=== PATIENT | female | born 1955 | race Caucasian/White ===

== ENCOUNTER 2024-06-16 06:07 | Inpatient (IN) | payer MEDICARE, OTHER ==
[~2024-06-16] VITALS: Ht 165.1 cm; Wt 76.8 kg
[2024-06-16] MEDS: ondansetron/PF 4mg/2ml inj IV ONE (06:46)
[2024-06-16 07:10] LABS: BASOPHILS # (AUTO) 0.1 X10'3 (0-0.2); BASOPHILS % (AUTO) 0.3 % (0-1); EOSINOPHILS # (AUTO) 0.1 X10'3 (0-0.9); EOSINOPHILS % (AUTO) 0.5 % (0-6); HEMATOCRIT 32.5 % (35.0-45.0); LYMPHOCYTES # (AUTO) 1.1 X10'3 (1.1-4.8); MEAN CORPUSCULAR HEMOGLOBIN 31.2 PG (27.0-31.0); MEAN CORPUSCULAR HGB CONC 33.8 g/dL (33.0-36.5); MEAN CORPUSCULAR VOLUME 92.2 FL (78-98); MEAN PLATELET VOLUME 8.3 FL (7.4-10.4); MONOCYTES # (AUTO) 1.2 X10'3 (0-0.9); MONOCYTES % (AUTO) 5.4 % (2-12); NEUTROPHILS # (AUTO) 19.8 X10'3 (1.8-7.7); NEUTROPHILS % (AUTO) 88.8 % (42-75); PLATELET COUNT 327 X10'3 (140-440); RED BLOOD COUNT 3.53 X10'6 (4.20-5.60); RED CELL DISTRIBUTION WIDTH 14.7 % (11.5-14.5); WHITE BLOOD COUNT 22.3 X10'3 (4.5-11.0)
[2024-06-16 07:20] LABS: ALANINE AMINOTRANSFERASE 19 U/L (12-78); ALBUMIN 1.9 G/DL (3.4-5.0); ALBUMIN/GLOBULIN RATIO 0.4 (1.1-1.5); ALKALINE PHOSPHATASE 133 IU/L (46-116); ANION GAP 8 (8-16); ASPARTATE AMINO TRANSFERASE 21 U/L (10-37); BILIRUBIN,TOTAL 0.5 MG/DL (0.1-1.0); BLOOD UREA NITROGEN 11 MG/DL (7-18); BUN/CREATININE RATIO 6.2 (10.0-20.0); CALCIUM 9.2 MG/DL (8.5-10.1); CHLORIDE 99 MMOL/L (99-107); CREATININE 1.78 MG/DL (0.40-0.90); GLUCOSE 145 MG/DL (70-104); LIPASE 32 U/L (16-77); SODIUM 137 MMOL/L (135-145); TOTAL CARBON DIOXIDE 29.9 MMOL/L (24-32); TOTAL PROTEIN 6.4 G/DL (6.4-8.2); eCRCL 27 ML/MIN; eGFR 28 ML/MIN
[2024-06-16 07:29] LABS: POTASSIUM 2.2 MMOL/L (3.5-5.1)
[2024-06-16] MEDS: potassium Cl 20 mEq SR tablet PO STA (07:48)
[2024-06-16] MEDS: magnesium oxide 400mg tablet PO ONE (07:50)
[2024-06-16 08:58] LABS: MAGNESIUM 1.7 MG/DL (1.5-2.4)
[2024-06-16 10:27] LABS: BILIRUBIN,URINE NEGATIVE (Neg); CLARITY,URINE CLEAR (Clear); COLOR,URINE YELLOW (Yellow); GLUCOSE, URINE NEGATIVE (Neg); KETONES,URINE NEGATIVE (Neg); LEUKOCYTE ESTERASE ,URINE NEGATIVE (Neg); NITRITES, URINE NEGATIVE (Neg); OCCULT BLOOD,URINE SMALL (Neg); PROTEIN,URINE 30 mg/dl (Neg); UROBILINOGEN,URINE 0.2 E.U/dL (0.2-1.0)
[2024-06-16 10:33] LABS: UA COLLECTION TYPE OTHER
[2024-06-16 10:36] LABS: BACTERIA,URINE FEW /HPF (Neg); MUCUS STRANDS FEW /LPF (Neg); SQUAMOUS EPITHELIAL CELL,UR FEW /LPF (FEW)
[2024-06-16] MEDS: ciprofloxacin 250mg tablet PO ONE (12:15)
[2024-06-16] MEDS ORDERED: potassium Cl 40MEQ/1/2NS 520ml 520 ML IV PRN (14:35)
[2024-06-16] MEDS ORDERED: acetaminophen 325mg tablet PO PRN (14:35)
[2024-06-16] MEDS ORDERED: magnesium Cl slow-release 64mg tablet PO PRN (14:35)
[2024-06-16] MEDS ORDERED: magnesium sulf-water 4G/100mL 100 ML IV PRN (14:35)
[2024-06-16] MEDS ORDERED: magnesium sulf-water 2g/50mL 50 ML IV PRN (14:35)
[2024-06-16] MEDS ORDERED: magnesium hydroxide 30ml (MOM) UD suspension PO PRN (14:35)
[2024-06-16 14:54] VITALS: BP 134/87; PULSE 95; RESP 18; TEMP 97.5; O2SAT 98
[2024-06-16] MEDS: metroNIDAZOLE-Flagyl 500mg/NS 100 ML IV SCH (15:16)
[2024-06-16] MEDS: normal saline 1000ml 1,000 ML IV SCH (15:16)
[2024-06-16] MEDS: ondansetron/PF 4mg/2ml inj IV PRN (15:16)
[2024-06-16 15:22] LABS: C DIFF ANTIGEN POSITIVE (NEGATIVE); C DIFF SPECIMEN=DIARRHEA? ACCEPTABLE; C DIFFICILE TOXINS A&B POSITIVE (Neg)
[2024-06-16 15:30] VITALS: RESP 18; O2SAT 95
[2024-06-16 15:47] LABS: APTT 27 SECONDS (22-32); INR 1.1 INR; MAGNESIUM 1.8 MG/DL (1.5-2.4); PROTHROMBIN TIME 11.5 SECONDS (9.0-12.0)
[2024-06-16 15:50] LABS: POTASSIUM 2.7 MMOL/L (3.5-5.1)
[2024-06-16] MEDS: potassium Cl 20 mEq SR tablet PO PRN (16:37)
[2024-06-16] MEDS: mag hydrox/Alum hydrox/simeth 30ml oral suspension PO PRN (16:51)
[2024-06-16] MEDS ORDERED: METO-384 PO (17:01)
[2024-06-16] MEDS ORDERED: ESCI-8 PO (17:01)
[2024-06-16] MEDS ORDERED: LEVO150C4 PO (17:01)
[2024-06-16] MEDS ORDERED: HYDR12.55 PO (17:01)
[2024-06-16] MEDS ORDERED: ROSU10TA72 PO (17:01)
[2024-06-16 18:00] VITALS: BP 127/65; PULSE 73; RESP 18; TEMP 97.2; O2SAT 99
[2024-06-16] MEDS: docusate sod 100mg capsule PO SCH (19:58)
[2024-06-16 20:00] VITALS: RESP 18; O2SAT 98
[2024-06-16] MEDS ORDERED: ciprofloxacin lact 400MG/200ML 200 ML IV SCH (20:00)
[2024-06-16] MEDS: vancomycin 125 MG/5 ML UD oral SOLN.RECON 5mL oral syringe (FIRVANQ) PO SCH (20:08)
[2024-06-16] MEDS: heparin, porcine 5000 units/ml vial SQ SCH (20:09)
[2024-06-16] MEDS: K and/or MAG REPLACEMENT MC SCH (20:19)
[2024-06-16 22:00] VITALS: BP 113/73; PULSE 98; RESP 13; TEMP 99.3; O2SAT 98
[2024-06-16] MEDS: Melatonin 3mg tablet PO PRN (23:47)
[2024-06-17] VITALS (8 sets, daily range): BP systolic 84–107; BP diastolic 52–66; PULSE 70–95; RESP 14–18; TEMP 98–98.3; O2SAT 96–97
[2024-06-17 06:03] LABS: BASOPHILS # (AUTO) 0.1 X10'3 (0-0.2); BASOPHILS % (AUTO) 0.8 % (0-1); EOSINOPHILS # (AUTO) 0.1 X10'3 (0-0.9); HEMATOCRIT 30.3 % (35.0-45.0); HEMOGLOBIN 9.9 g/dl (12.0-16.0); LYMPHOCYTES # (AUTO) 1.5 X10'3 (1.1-4.8); LYMPHOCYTES % (AUTO) 10.5 % (21-51); MEAN CORPUSCULAR HEMOGLOBIN 29.9 PG (27.0-31.0); MEAN CORPUSCULAR HGB CONC 32.5 g/dL (33.0-36.5); MEAN CORPUSCULAR VOLUME 92.2 FL (78-98); MEAN PLATELET VOLUME 8.4 FL (7.4-10.4); MONOCYTES % (AUTO) 6.7 % (2-12); NEUTROPHILS # (AUTO) 11.6 X10'3 (1.8-7.7); PLATELET COUNT 295 X10'3 (140-440); RED BLOOD COUNT 3.29 X10'6 (4.20-5.60); RED CELL DISTRIBUTION WIDTH 14.8 % (11.5-14.5); WHITE BLOOD COUNT 14.4 X10'3 (4.5-11.0)
[2024-06-17 06:43] LABS: ALANINE AMINOTRANSFERASE 12 U/L (12-78); ALBUMIN 1.7 G/DL (3.4-5.0); ALBUMIN/GLOBULIN RATIO 0.4 (1.1-1.5); ALKALINE PHOSPHATASE 107 IU/L (46-116); ANION GAP 7 (8-16); ASPARTATE AMINO TRANSFERASE 17 U/L (10-37); BILIRUBIN,TOTAL 0.4 MG/DL (0.1-1.0); BLOOD UREA NITROGEN 10 MG/DL (7-18); BUN/CREATININE RATIO 6.5 (10.0-20.0); CALCIUM 8.7 MG/DL (8.5-10.1); CHLORIDE 104 MMOL/L (99-107); CHOL/HDL RATIO 2.1 (0.00-4.99); CHOLESTEROL 86 MG/DL (0-200); CREATININE 1.54 MG/DL (0.40-0.90); GLUCOSE 107 MG/DL (70-104); HDL CHOLESTEROL 41 MG/DL (35-60); LDL CHOLESTEROL 30 MG/DL (50-100); POTASSIUM 3.5 MMOL/L (3.5-5.1); SODIUM 138 MMOL/L (135-145); THYROID STIMULATING HORMONE 6.53 ulU/ml (0.34-4.50); TOTAL CARBON DIOXIDE 26.7 MMOL/L (24-32); TOTAL PROTEIN 5.7 G/DL (6.4-8.2); TRIGLYCERIDES 79 MG/DL (20-135); eCRCL 31 ML/MIN; eGFR 33 ML/MIN
[2024-06-17 07:08] LABS: HEMOGLOBIN A1C 5.9 % (4.5-6.2)
[2024-06-17] MEDS: metoprolol succinate 25mg (24-HOUR) SR. Tablet PO SCH (07:38)
[2024-06-17] MEDS: pantoprazole 40mg Tablet.DR PO SCH (07:38)
[2024-06-17] MEDS: ESCITALOPRAM 10 mg tablet 10 MG TABLET PO SCH (07:38)
[2024-06-17] MEDS: levoTHYROXINE 75mcg tablet PO SCH (07:38)
[2024-06-17] MEDS: ROSUVASTATIN CALCIUM 5 MG TABLET PO SCH (07:39)
[2024-06-17 11:23] LABS: FREE T4 (FREE THYROXINE) 1.08 NG/DL (0.73-1.40)
[2024-06-17] MEDS: lactobacillus rhamnosus 10,000 MMU CELLS/CAPSULE PO SCH (13:20)
[2024-06-18] VITALS (10 sets, daily range): BP systolic 87–110; BP diastolic 51–65; PULSE 63–84; RESP 16–20; TEMP 97.9–98.3; O2SAT 96–100
[2024-06-18 06:03] LABS: BASOPHILS # (AUTO) 0.1 X10'3 (0-0.2); BASOPHILS % (AUTO) 0.7 % (0-1); EOSINOPHILS # (AUTO) 0.5 X10'3 (0-0.9); EOSINOPHILS % (AUTO) 5.2 % (0-6); HEMATOCRIT 26.9 % (35.0-45.0); HEMOGLOBIN 9.2 g/dl (12.0-16.0); LYMPHOCYTES # (AUTO) 1.6 X10'3 (1.1-4.8); LYMPHOCYTES % (AUTO) 16.9 % (21-51); MEAN CORPUSCULAR HEMOGLOBIN 31.4 PG (27.0-31.0); MEAN CORPUSCULAR VOLUME 92.3 FL (78-98); MEAN PLATELET VOLUME 8.8 FL (7.4-10.4); MONOCYTES # (AUTO) 0.6 X10'3 (0-0.9); MONOCYTES % (AUTO) 6.3 % (2-12); NEUTROPHILS # (AUTO) 6.7 X10'3 (1.8-7.7); NEUTROPHILS % (AUTO) 70.9 % (42-75); PLATELET COUNT 279 X10'3 (140-440); RED BLOOD COUNT 2.92 X10'6 (4.20-5.60); RED CELL DISTRIBUTION WIDTH 15.2 % (11.5-14.5); WHITE BLOOD COUNT 9.4 X10'3 (4.5-11.0)
[2024-06-18 06:19] LABS: ALANINE AMINOTRANSFERASE 17 U/L (12-78); ALBUMIN 1.5 G/DL (3.4-5.0); ALBUMIN/GLOBULIN RATIO 0.4 (1.1-1.5); ALKALINE PHOSPHATASE 76 IU/L (46-116); ANION GAP 8 (8-16); ASPARTATE AMINO TRANSFERASE 25 U/L (10-37); BILIRUBIN,TOTAL 0.3 MG/DL (0.1-1.0); BLOOD UREA NITROGEN 11 MG/DL (7-18); BUN/CREATININE RATIO 7.4 (10.0-20.0); CALCIUM 8.4 MG/DL (8.5-10.1); CHLORIDE 108 MMOL/L (99-107); CREATININE 1.48 MG/DL (0.40-0.90); GLUCOSE 107 MG/DL (70-104); SODIUM 142 MMOL/L (135-145); TOTAL PROTEIN 5.4 G/DL (6.4-8.2); eCRCL 32 ML/MIN; eGFR 35 ML/MIN
[2024-06-18 06:30] LABS: POTASSIUM 2.9 MMOL/L (3.5-5.1)
[2024-06-18] MEDS ORDERED: acetaminophen 325mg tablet PO PRN (21:35)
[2024-06-18] MEDS: HYDROcodone/acetaminophen 5mg/325mg tablet PO PRN (21:51)
[2024-06-19] VITALS (8 sets, daily range): BP systolic 105–138; BP diastolic 42–76; PULSE 65–82; RESP 14–20; TEMP 97.7–98.5; O2SAT 94–98
[2024-06-19 04:58] LABS: BASOPHILS # (AUTO) 0.1 X10'3 (0-0.2); BASOPHILS % (AUTO) 1.2 % (0-1); EOSINOPHILS # (AUTO) 0.4 X10'3 (0-0.9); EOSINOPHILS % (AUTO) 6.4 % (0-6); HEMATOCRIT 25.5 % (35.0-45.0); HEMOGLOBIN 8.6 g/dl (12.0-16.0); LYMPHOCYTES # (AUTO) 2.1 X10'3 (1.1-4.8); LYMPHOCYTES % (AUTO) 33.6 % (21-51); MEAN CORPUSCULAR HEMOGLOBIN 31.3 PG (27.0-31.0); MEAN CORPUSCULAR HGB CONC 33.8 g/dL (33.0-36.5); MEAN CORPUSCULAR VOLUME 92.5 FL (78-98); MEAN PLATELET VOLUME 8.2 FL (7.4-10.4); MONOCYTES # (AUTO) 0.4 X10'3 (0-0.9); MONOCYTES % (AUTO) 6.9 % (2-12); NEUTROPHILS # (AUTO) 3.2 X10'3 (1.8-7.7); NEUTROPHILS % (AUTO) 51.9 % (42-75); PLATELET COUNT 276 X10'3 (140-440); RED BLOOD COUNT 2.76 X10'6 (4.20-5.60); RED CELL DISTRIBUTION WIDTH 14.8 % (11.5-14.5); WHITE BLOOD COUNT 6.1 X10'3 (4.5-11.0)
[2024-06-19 05:14] LABS: ALANINE AMINOTRANSFERASE 25 U/L (12-78); ALBUMIN 1.5 G/DL (3.4-5.0); ALBUMIN/GLOBULIN RATIO 0.4 (1.1-1.5); ALKALINE PHOSPHATASE 71 IU/L (46-116); ANION GAP 8 (8-16); ASPARTATE AMINO TRANSFERASE 34 U/L (10-37); BILIRUBIN,TOTAL 0.2 MG/DL (0.1-1.0); BLOOD UREA NITROGEN 7 MG/DL (7-18); BUN/CREATININE RATIO 4.9 (10.0-20.0); CALCIUM 8.9 MG/DL (8.5-10.1); CREATININE 1.43 MG/DL (0.40-0.90); GLUCOSE 96 MG/DL (70-104); POTASSIUM 3.4 MMOL/L (3.5-5.1); SODIUM 144 MMOL/L (135-145); TOTAL PROTEIN 5.2 G/DL (6.4-8.2); eCRCL 33 ML/MIN; eGFR 36 ML/MIN
[2024-06-19 05:20] LABS: CHLORIDE 115 MMOL/L (99-107)
[2024-06-19] MEDS: lactose-reduced food (Ensure Enlive) - 237ml bottle PO SCH (08:00)
[2024-06-19] MEDS: potassium Cl 20 mEq SR tablet PO PRN (09:09)
[2024-06-19 13:09] LABS: TOTAL PROTEIN,URINE RANDOM 51.9 MG/DL
[2024-06-19] MEDS: magnesium oxide 400mg tablet PO SCH (19:55)
[2024-06-19] MEDS: potassium Cl 20 mEq SR tablet PO ONE (19:55)
[2024-06-20 05:39] LABS: BASOPHILS # (AUTO) 0.2 X10'3 (0-0.2); BASOPHILS % (AUTO) 2.6 % (0-1); EOSINOPHILS # (AUTO) 0.2 X10'3 (0-0.9); EOSINOPHILS % (AUTO) 4.2 % (0-6); HEMATOCRIT 25.4 % (35.0-45.0); HEMOGLOBIN 8.7 g/dl (12.0-16.0); LYMPHOCYTES # (AUTO) 1.9 X10'3 (1.1-4.8); MEAN CORPUSCULAR HEMOGLOBIN 31.8 PG (27.0-31.0); MEAN CORPUSCULAR HGB CONC 34.1 g/dL (33.0-36.5); MEAN CORPUSCULAR VOLUME 93.1 FL (78-98); MEAN PLATELET VOLUME 8.2 FL (7.4-10.4); MONOCYTES # (AUTO) 0.6 X10'3 (0-0.9); NEUTROPHILS # (AUTO) 2.9 X10'3 (1.8-7.7); NEUTROPHILS % (AUTO) 50.2 % (42-75); PLATELET COUNT 283 X10'3 (140-440); RED BLOOD COUNT 2.73 X10'6 (4.20-5.60); RED CELL DISTRIBUTION WIDTH 14.8 % (11.5-14.5); WHITE BLOOD COUNT 5.8 X10'3 (4.5-11.0)
[2024-06-20 06:08] LABS: ALANINE AMINOTRANSFERASE 30 U/L (12-78); ALBUMIN 1.7 G/DL (3.4-5.0); ALBUMIN/GLOBULIN RATIO 0.4 (1.1-1.5); ALKALINE PHOSPHATASE 89 IU/L (46-116); ANION GAP 6 (8-16); ASPARTATE AMINO TRANSFERASE 36 U/L (10-37); BILIRUBIN,TOTAL 0.2 MG/DL (0.1-1.0); BLOOD UREA NITROGEN 7 MG/DL (7-18); BUN/CREATININE RATIO 4.6 (10.0-20.0); CALCIUM 8.7 MG/DL (8.5-10.1); CHLORIDE 111 MMOL/L (99-107); CREATININE 1.53 MG/DL (0.40-0.90); GLUCOSE 98 MG/DL (70-104); POTASSIUM 3.6 MMOL/L (3.5-5.1); SODIUM 143 MMOL/L (135-145); TOTAL CARBON DIOXIDE 25.6 MMOL/L (24-32); TOTAL PROTEIN 5.5 G/DL (6.4-8.2); eCRCL 31 ML/MIN; eGFR 34 ML/MIN
[2024-06-20 07:36] LABS: PLATELET ESTIMATE NORMAL; TOTAL CELLS COUNTED 100
[2024-06-20] MEDS ORDERED: FERR324T3 PO (08:24)
[2024-06-20] MEDS ORDERED: VANC25SO PO (08:24)
[2024-06-20] MEDS ORDERED: MAGN400T56 PO (08:24)
[2024-06-20] MEDS ORDERED: LACT1CAP26 PO (08:24)
[2024-06-20] MEDS ORDERED: POTA-197 PO (08:24)
[2024-06-20] MEDS: atorvastatin 20mg tablet PO SCH (08:52)
[2024-06-20] MEDS: ferrous gluconate 324mg tablet PO SCH (08:53)
[2024-06-20] MEDS: potassium Cl 20 mEq SR tablet PO SCH (08:53)
[2024-06-20 10:00] VITALS: BP 102/48; PULSE 73; RESP 19; TEMP 98.1; O2SAT 98
[2024-06-20 10:34] VITALS: RESP 16; O2SAT 97
[2024-06-20 11:30] VITALS: RESP 16
[2024-06-20] MEDS ORDERED: ZINC113C10 TOP (12:59)
[2024-06-20] MEDS ORDERED: VANC125C11 PO (13:45)
[2024-06-20] MEDS ORDERED: LACT1CAP55 PO (15:00)
[2024-06-20] MEDS: FLU VACC TS2024-25(6MOS UP)/PF 45 MCG/0.5 ML SYRINGE IMVAC ONE (15:17)
== END 2024-06-20 15:30 | disposition home or self-care (01) | DRG 371 ==
LOC: ER 06:08 → ED HOLD 12:37 → EDBEDREQ 13:36 → EDBEDREQTM 13:36 → SUR 3N 14:40
PROVIDERS: ADMIT Family Medicine; ATTEND Family Medicine
DX: A04.72 Enterocolitis due to Clostridium difficile, not specified as recurrent (principal); N17.0 Acute kidney failure with tubular necrosis; N39.0 Urinary tract infection, site not specified; N18.4 Chronic kidney disease, stage 4 (severe); E87.6 Hypokalemia; I12.9 Hypertensive chronic kidney disease with stage 1 through stage 4 chronic kidney disease, or unspecified chronic kidney disease; I95.1 Orthostatic hypotension; E78.5 Hyperlipidemia, unspecified; Z79.899 Other long term (current) drug therapy; Z90.710 Acquired absence of both cervix and uterus; Z87.442 Personal history of urinary calculi; Z87.891 Personal history of nicotine dependence; Z23 Encounter for immunization
CPT/HCPCS: 36415; 80053; 80061; 81001; 82570; 82728; 83036; 83540; 83550; 83605; 83690; 83735; 83930; 83935; 84132; 84145; 84156; 84300; 84439; 84443; 85007; 85025; 85610; 85730; 87040; 87045; 87046; 87081; 87088; 87207; 87324; 87449; 89055; 90686; 93005; 96374; 97116; 97161; 97530; 99285; A6250; A6258; A6449; C1758; G0378; J1644; J2405; J3490; J7030

== ENCOUNTER 2024-11-20 11:44 | Emergency (ER) | payer MEDICARE, OTHER ==
[~2024-11-20] VITALS: Ht 170.2 cm; Wt 85.9 kg
[~2024-11-20 11:44] MED LIST: ESCI-8 PO; LEVO150C5 PO; LINE600T14 PO; LISI10TA27 PO; METO-384 PO; VANC25SO PO
--- NOTE | 2024-11-20 12:05 | Physician Documentation ---
History of Present Illness ~ Chief Complaint: Diarrhea Stated Complaint: CDIFF Time Seen by MD: 12:01 Primary Medical Doctor: ERICH MICHAELS This is a 69-year-old male who presents to the emergency department per ambulance today when her home health nurse found her having liquid watery diarrhea and it was concern she may have had a new development of C diff diarrhea. The patient notes going to history of this in the fall after treatment with antibiotics for urinary tract infection. She completed the cour se of appropriate treatment for the C diff. She was not had antibiotics recently. She does note copious diarrhea along with nausea and vomiting and feels weak. Denies any chest pain, shortness of breath, fevers. Medication Reconciliation Allergies: Coded Allergies: No Known Allergies (Unverified , 11/20/24) Scheduled Escitalopram Oxalate (Escitalopram Oxalate), 1 TAB PO DAILY, (Reported) Levothyroxine Sodium (Levothyroxine), 1 CAP PO DAILY, (Reported) Linezolid (Linezolid), 600 MG PO Q12H Lisinopril (Lisinopril), 30 MG PO DAILY Metoprolol Succinate (Metoprolol Succinate), 1 TAB PO DAILY, (Reported) Vancomycin HCl (Firvanq), 125 MG PO Q6H Past Medical History Patient History: FH: alcoholism FATHER FH: thyroid disease MOTHER Alcohol Use: None Drug Use: none Lives with: Alone Lives In: Home Occupation: retired Review of Systems ROS As stated above in the HPI, otherwise all systems are reviewed and negative. Physical Exam Vital Signs: Temperature: 97.9, Source: Oral, Heart Rate: 91, Respiratory Rate: 16, BP: 115/86, Pulse Oximetry: 98, Weight: 85.910 Oxygen Flow Rate: 0 Physical Exam General: Alert, no apparent distress. Neck: Full range of motion. Respiratory: Lungs clear, no respiratory distress. Chest: No accessory muscle use. Cardiovascular: Regular rate and rhythm, no murmurs. Gastrointestinal: Soft, mild diffuse tenderness, nondistended. Bowels sounds present. Extremities: Normal range of motion, no deformity. Neurologic: Oriented x4. Psychiatric: Normal mood and affect. Skin: Normal color, warm and dry. No edema, no ecchymosis. Progress Progress Note Patient ambulated without difficulty in the ER. She did twice provide stool samples, but the first sample was evidently contaminated by urine. Results will be available for PCP to obtain as outpatient. Results/Orders Results/Orders Orders - ADRIAN RIDDLE [employer] C Diff Toxin (11/20/24 12:05) Cult Stool (Enteric Pathogens) (11/20/24 12:05) * Iv Access / Saline Lock * (11/20/24 12:14) Urinalysis, Cult If Indicated (11/20/24 14:50) Completed Orders - ADRIAN RIDDLE [employer] Normal Saline 1000ml (Sodium Chloride 10 (11/20/24 12:15) Ondansetron Inj. (Zofran 4mg/2ml Vial) (11/20/24 12:15) Cbc/Diff (11/20/24 12:17) CMP (11/20/24 12:17) Lipase (11/20/24 12:17) Medications Received in ER Medications (Trade) Dose Ordered Sig/Hernesto Route PRN Reason Start Time Stop Time Status Last Admin Dose Admin Sodium Chloride 1,000 ml @ 1,000 mls/hr ONCE ONCE IV 11/20/24 12:15 11/20/24 13:14 DC 11/20/24 12:42 1,000 MLS/HR (Zofran 4mg/2ml vial) 4 mg ONCE ONCE IV 11/20/24 12:15 11/20/24 12:18 DC 11/20/24 12:42 4 MG Vital Signs 11/20/24 11/20/24 11:45 13:08 Temp 97.9 Pulse 91 92 Resp 16 17 B/P (MAP) 115/86 101/57 (72) Pulse Ox 98 95 O2 Flow Rate 0 0 Laboratory Tests Test 11/20/24 11:52 White Blood Count 8.5 Red Blood Count 4.43 Hemoglobin 12.2 Hematocrit 37.5 Mean Corpuscular Volume 84.6 Mean Corpuscular Hemoglobin 27.5 Mean Corpuscular Hemoglobin Concent 32.5 L Red Cell Distribution Width 18.6 H Platelet Count 355 Mean Platelet Volume 8.5 Neutrophils (%) (Auto) 80.9 H Lymphocytes (%) (Auto) 10.0 L Monocytes (%) (Auto) 6.0 Eosinophils (%) (Auto) 3.0 Basophils (%) (Auto) 0.1 Neutrophils # (Auto) 6.9 Lymphocytes # (Auto) 0.8 L Monocytes # (Auto) 0.5 Eosinophils # (Auto) 0.3 Basophils # (Auto) 0.0 CBC Comment Platelet Estimate Normal Red Blood Cell Morphology Perf Basophilic Stippling Anisocytosis 2+ Elliptocytes Few Sodium Level 139 Potassium Level 3.7 Chloride Level 108 H Carbon Dioxide Level 19.3 L Anion Gap 12 Blood Urea Nitrogen 35 H Creatinine 1.97 H Estimated GFR/1.73 m2 25 BUN/Creatinine Ratio 17.8 Glucose Level 112 H Calcium Level 10.7 H Total Bilirubin 0.2 Aspartate Amino Transf (AST/SGOT) 13 Alanine Aminotransferase (ALT/SGPT) 24 Alkaline Phosphatase 135 H Total Protein 8.5 H Albumin 3.5 Globulin 5.0 H Albumin/Globulin Ratio 0.7 L Lipase 88 H Chemistry Comments Medical Decision Making Additional Comments This is a somewhat ill-appearing 69-year-old female who presents today due to concerns for weakness and nausea vomiting was diarrhea. She reports that her diarrhea similar to when she had C diff in the fall of 2023. Testing sent for C diff and stool culture. She will be given IV fluid, ondansetron for nausea, and lab work will be obtained. Labs remarkable for evidence of TEODORA, mildly elevated lipase in the absence of severe abdominal pain. One liter NS bolus given. Patient able to ambulate without difficulty and was then eager to discharge home. C Diff sample sent, patient discharged prior to return of result. This can be obtained on an outpatient basis once result returns and tx can then be pursued by her PCP. Departure Time of Disposition: 14:55 Disposition: 01 HOME / SELF CARE / HOMELESS Impression: Primary Impression: Diarrhea Additional Impression: Weakness Condition: Stable Discharge Instructions: Clostridioides Difficile Test, Diarrhea, Adult Additional Instructions: Your labs looked good overall other than evidence of mild dehydration. Continue to work to stay well hydrated as you're obviously losing a lot of liquid with the frequent diarrhea. You should take a probiotic supplement and eat foods that contain probiotics as well. Please use the prescribed ondansetron if needed for nausea. Followup soon with your primary care provider, and they will be able to obtain the C Diff test results from today. Return if worse. Referrals: NO PRIMARY CARE PROVIDER (PCP) Prescriptions Ondansetron 8mg ODT (Ondansetron Odt) 8 Mg Tab.rapdis 1 TAB PO TID PRN for nausea/vomiting, #10 TAB Prov: ADRIAN RIDDLE NP 11/20/24 Education Educated: Patient Educated regarding: diagnosis, treatment, prognosis, need for follow up Signature Scribe Signature: no scribe Attestation: The note accurately reflects work and decisions made by me.Adrian Cheng NP 11/20/24 12:16 ADRIAN RIDDLE NP Nov 20, 2024 12:05
[2024-11-20 12:32] LABS: BASOPHILS % (AUTO) 0.1 % (0-1); EOSINOPHILS # (AUTO) 0.3 X10'3 (0-0.9); HEMATOCRIT 37.5 % (35.0-45.0); HEMOGLOBIN 12.2 g/dl (12.0-16.0); LYMPHOCYTES # (AUTO) 0.8 X10'3 (1.1-4.8); MEAN CORPUSCULAR HEMOGLOBIN 27.5 PG (27.0-31.0); MEAN CORPUSCULAR HGB CONC 32.5 g/dL (33.0-36.5); MEAN CORPUSCULAR VOLUME 84.6 FL (78-98); MEAN PLATELET VOLUME 8.5 FL (7.4-10.4); MONOCYTES # (AUTO) 0.5 X10'3 (0-0.9); NEUTROPHILS # (AUTO) 6.9 X10'3 (1.8-7.7); NEUTROPHILS % (AUTO) 80.9 % (42-75); PLATELET COUNT 355 X10'3 (140-440); RED BLOOD COUNT 4.43 X10'6 (4.20-5.60); RED CELL DISTRIBUTION WIDTH 18.6 % (11.5-14.5); WHITE BLOOD COUNT 8.5 X10'3 (4.5-11.0)
[2024-11-20 12:41] LABS: ALANINE AMINOTRANSFERASE 24 U/L (12-78); ALBUMIN 3.5 G/DL (3.4-5.0); ALBUMIN/GLOBULIN RATIO 0.7 (1.1-1.5); ALKALINE PHOSPHATASE 135 IU/L (46-116); ANION GAP 12 (8-16); ASPARTATE AMINO TRANSFERASE 13 U/L (10-37); BILIRUBIN,TOTAL 0.2 MG/DL (0.1-1.0); BLOOD UREA NITROGEN 35 MG/DL (7-18); BUN/CREATININE RATIO 17.8 (10.0-20.0); CALCIUM 10.7 MG/DL (8.5-10.1); CHLORIDE 108 MMOL/L (99-107); CREATININE 1.97 MG/DL (0.40-0.90); GLUCOSE 112 MG/DL (70-104); LIPASE 88 U/L (16-77); POTASSIUM 3.7 MMOL/L (3.5-5.1); SODIUM 139 MMOL/L (135-145); TOTAL CARBON DIOXIDE 19.3 MMOL/L (24-32); TOTAL PROTEIN 8.5 G/DL (6.4-8.2); eCRCL 26 ML/MIN; eGFR 25 ML/MIN
[2024-11-20] MEDS: normal saline 1000ml 1,000 ML IV ONE (12:42)
[2024-11-20] MEDS: ondansetron/PF 4mg/2ml inj IV ONE (12:42)
[2024-11-20 13:34] LABS: ANISOCYTOSIS 2+; PLATELET ESTIMATE NORMAL
[2024-11-20 13:35] LABS: ELLIPTOCYTES FEW
[2024-11-20] MEDS ORDERED: ONDA-245 PO (14:57)
[2024-11-20 15:17] VITALS: BP 136/88; PULSE 95; TEMP 97.9; O2SAT 97
[2024-11-20 15:23] VITALS: RESP 16
== END 2024-11-20 15:12 | disposition home or self-care (01) ==
LOC: ER 11:45
DX: R19.7 Diarrhea, unspecified (principal)
CPT/HCPCS: 36415; 80053; 83690; 85025; 96361; 96374; 99284; J2405; J7030; 85008

== ENCOUNTER 2025-06-07 11:35 | Emergency (ER) | payer MEDICARE, OTHER ==
[~2025-06-07] VITALS: Ht 165.1 cm; Wt 84.0 kg
[~2025-06-07 11:35] MED LIST changes: +HYDR12.55 PO; -LINE600T14 PO; +SIMV-341 PO; +TRAM50TA2 PO; -VANC25SO PO
[2025-06-07 11:45] VITALS: TEMP 97
--- NOTE | 2025-06-07 13:24 | Physician Documentation ---
History of Present Illness ~ Chief Complaint: Weakness Stated Complaint: NECK/SHOULDER PAIN Time Seen by MD: 12:53 OK to notify your PCP?: Yes Primary Medical Doctor: Dr Noyola Source: patient, family Mode of Arrival: POV, Ambulatory HPI H/o Hyperlipidemia, depression, hypertension, hypothyroidism and GERD Right gluteal abscess, Recurrent Cdiff colitis, MDR Klebsiella urine infection p/w weakness. reports recurrent c dif colitis x 5 episodes this year followed by Dr. Vince GRIMES. Last flare was in April completed abx tx. Now she has return of di arrhea and weakness. Also reports right shoulder pain, worse with rom. Hurts when lying on it. Worsened since she went to chiropracter who adjusted her. Reports ongoing pain and tingling to her right hand x 5 weeks. No fevers. No CP or SOB. No current ABD pain. + bloating. Took immodium with relief. Medication Reconciliation Allergies: Coded Allergies: No Known Allergies (Unverified , 06/07/25) Scheduled Escitalopram Oxalate (Escitalopram Oxalate), 1 TAB PO DAILY, (Reported) Hydrochlorothiazide (Hydrochlorothiazide), 1 TAB PO DAILY, (Reported) Levothyroxine Sodium (Levothyroxine), 1 CAP PO DAILY, (Reported) Lisinopril (Lisinopril), 30 MG PO DAILY Metoprolol Succinate (Metoprolol Succinate), 1 TAB PO DAILY, (Reported) Simvastatin (Zocor), 1 TAB PO HS, (Reported) Scheduled PRN Tramadol HCl (Tramadol HCl), 1 TAB PO Q12H PRN PRN for pain, (Reported) Past Medical History Patient History: FH: alcoholism FATHER FH: thyroid disease MOTHER Alcohol Use: None Drug Use: none Lives with: Alone Lives In: Home Occupation: retired Review of Systems All Other Systems at this time: Reviewed and Negative Genitourinary: Denies: burning, discharge, dysuria, frequency, flank pain, hematuria, incontinence, pain Neurological: Denies: speech problem, headache, dizziness, left sided numbness, right sided numbness Physical Exam Vital Signs: Temperature: 97.0, Source: Oral, Heart Rate: 74, Respiratory Rate: 16, BP: 140/97, Pulse Oximetry: 97, Weight: 84.000 Oxygen Flow Rate: 0 Physical Exam well appearing no distress moist mucous membranes no jvd breathing comfortably abd soft non tender skin pale, cool. intact cap refill, strong radial pulses. awake alert oriented, cn2-12 intact, intact bilateral upper lower strength, intact sensation, normal speech. normal gait. Right shoulder rom intact, tenderness right trapezius, intact neck rom no midline ttp. Progress Results/Orders Reviewed/noted all lab results: Yes Results/Orders Orders - TRUNG CANNON MD Cult Urine + [place] (06/07/25 14:47) Completed Orders - TRUNG CANNON MD Cbc/Diff (06/07/25 13:26) BMP (06/07/25 13:26) Hs Troponin I W Calculations (06/07/25 13:26) Electrocardiogram (06/07/25 ) Ringers Solution, Lacted (Lactated Ringe (06/07/25 14:15) Ua W/Microscopic, Cult If Ind (06/07/25 14:17) Mag & Alum Hydrox/Simeth Susp (Maalox Or (06/07/25 15:00) Famotidine Tablet (Pepcid Tablet) (06/07/25 15:00) Medications Received in ER Medications (Trade) Dose Ordered Sig/Hernesto Route PRN Reason Start Time Stop Time Status Last Admin Dose Admin (Maalox oral suspension) 30 ml ONCE ONCE PO 06/07/25 15:00 06/07/25 15:01 DC 06/07/25 15:22 30 ML (Pepcid tablet) 20 mg ONCE ONCE PO 06/07/25 15:00 06/07/25 15:01 DC 06/07/25 15:22 20 MG Vital Signs 06/07/25 06/07/25 06/07/25 06/07/25 11:45 13:00 13:14 14:08 Temp 97.0 Pulse 78 74 76 Resp 16 16 16 B/P (MAP) 136/97 140/97 (111) 142/96 (111) Pulse Ox 97 97 98 O2 Flow Rate 0 0 0 Laboratory Tests Test 06/07/25 13:44 06/07/25 14:17 White Blood Count 7.1 Red Blood Count 3.86 L Hemoglobin 11.1 L Hematocrit 34.5 L Mean Corpuscular Volume 89.3 Mean Corpuscular Hemoglobin 28.8 Mean Corpuscular Hemoglobin Concent 32.3 L Red Cell Distribution Width 17.2 H Platelet Count 281 Mean Platelet Volume 8.3 Neutrophils (%) (Auto) 60.6 Lymphocytes (%) (Auto) 27.4 Monocytes (%) (Auto) 7.6 Eosinophils (%) (Auto) 3.6 Basophils (%) (Auto) 0.8 Neutrophils # (Auto) 4.3 Lymphocytes # (Auto) 1.9 Monocytes # (Auto) 0.5 Eosinophils # (Auto) 0.3 Basophils # (Auto) 0.1 CBC Comment Sodium Level 136 Potassium Level 4.0 Chloride Level 106 Carbon Dioxide Level 21.9 L Anion Gap 8 Blood Urea Nitrogen 51 H Creatinine 3.42 H Estimated GFR/1.73 m2 13 BUN/Creatinine Ratio 14.9 Glucose Level 96 Calcium Level 10.2 H Troponin I High Sensitivity 8 Albumin 3.8 Chemistry Comments Urine Specimen Description Cln catch midstream Urine Color Yellow Urine Clarity Cloudy Urine pH 6.0 Urine Specific [place] 1.010 Urine Protein 30 H Urine Glucose (UA) Negative Urine Ketones Negative Urine Occult Blood Large H Urine Nitrite Positive H Urine Bilirubin Negative Urine Urobilinogen 0.2 Urine Leukocyte Esterase Large H Urine RBC 20-50 Urine WBC Tntc H Urine Squamous Epithelial Cells Moderate Urine Bacteria 4+ Urine Mucus None seen Urine Culture Indicated Indicated Volume Urine Centrifuged 10 ml Urine Comment EKG/XRAY/CT/US/VASC/MRI EKG : Additional Comment EKG independently interpreted time 1333 indication weakness NSR rate 68 normal axis normal intervals no st abnormality. Medical Decision Making Additional information obtaine: old records (January 06 discharge summary, cystoscopy, failed stent placemnt. ), N/A Findings 69 yof p/w with chronic weakness. h/o CKD, recurrent c dif followed by ID, Resistant Klembsiella, Also with right shoulder pain (primary complaint). Labs show chronic ckd around her baseline. (has been worse). UA showing questionable infection with significant sqaumous cells. No dysuria, no fever. No leukocytosis. no flank pain. Given her h/o multiple resistant hank and lack of symptoms we discussed together the desire to avoid abx if possible. Will wait for culture and then she can check in with her ID physician. As for her arm pain it is musculoskeletal with mild cervical radiculopathy with no neuro deficits. Differential Dx:Considerations: Include: other Departure Disposition: HOME / SELF CARE / HOMELESS Impression: Primary Impression: Radiculopathy Qualified Codes: M54.10 - Radiculopathy, site unspecified Additional Instructions: Follow up with your infectious disease physician. Apply heat and topical lidocaine to your shoulder. Return for fever. Referrals: NO PRIMARY CARE PROVIDER (PCP) Prescriptions Methocarbamol (Methocarbamol) 500 Mg Tablet 2 TAB PO Q8H for 30 Days, #90 TAB 0 Refills Prov: TRUNG CANNON MD 06/07/25 Signature Scribe Signature: [email or web address] Attestation: TRUNG Andrews MD Jun 07, 2025 13:24
--- NOTE | 2025-06-07 13:36 | ELECTROCARDIOGRAPH REPORT ---
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 STEVEN Quinn Measurements Intervals Kyle Rate: 68 P: 38 FL: 170 QRS: 7 QRSD: 102 T: 28 QT: 372 QTc: 396 Interpretive Statements Sinus rhythm Abnormal R-wave progression, early transition Electronically Signed On 06-09-2025 19:23:[address] STEVEN Quinn Please click the below link to view image of tracing.
[2025-06-07 13:58] LABS: MEAN PLATELET VOLUME 8.3 FL (7.4-10.4); RED CELL DISTRIBUTION WIDTH 17.2 % (11.5-14.5)
[2025-06-07 14:01] LABS: CREATININE 3.42 MG/DL (0.40-0.90); TOTAL CARBON DIOXIDE 21.9 MMOL/L (24-32)
[2025-06-07 14:02] LABS: eCRCL 14 ML/MIN; eGFR 13 ML/MIN
[2025-06-07] MEDS: ringers solution, lacted 1,000 ML IV ONE (14:15)
[2025-06-07 14:40] LABS: LEUKOCYTE ESTERASE ,URINE LARGE (Neg); NITRITES, URINE POSITIVE (Neg); OCCULT BLOOD,URINE LARGE (Neg)
[2025-06-07 14:41] LABS: UA COLLECTION TYPE CLN CATCH MIDSTREAM
[2025-06-07 14:46] LABS: MUCUS STRANDS NONE SEEN /LPF (Neg); SQUAMOUS EPITHELIAL CELL,UR MODERATE /LPF (FEW)
[2025-06-07] MEDS: mag hydrox/Alum hydrox/simeth 30ml oral suspension PO ONE (15:22)
[2025-06-07] MEDS ORDERED: METH-797 PO (16:05)
[2025-06-07 16:06] VITALS: BP 131/109; PULSE 78; RESP 16; O2SAT 98
[2025-06-07] MEDS ORDERED: ONDA-243 PO (16:11)
== END 2025-06-07 16:11 | disposition home or self-care (01) ==
LOC: ER 11:35
DX: M54.10 Radiculopathy, site unspecified (principal); I10 Essential (primary) hypertension; E78.5 Hyperlipidemia, unspecified; E03.9 Hypothyroidism, unspecified; Z87.440 Personal history of urinary (tract) infections; Z79.899 Other long term (current) drug therapy; Z60.2 Problems related to living alone
CPT/HCPCS: 36415; 80048; 81001; 84484; 85025; 87088; 93005; 99284; J7120; 87077; 87186